=== PATIENT | female | born 1965 | race Caucasian/White ===

== ENCOUNTER 2019-01-06 07:05 | Day surgery (SDC) | payer BC ==
[2019-01-05 14:59] VITALS: BMI 24.1
[2019-01-06 08:45] VITALS: TEMP 97.7
[2019-01-06 10:08] VITALS: BP 122/83; PULSE 70
--- NOTE | 2019-01-07 17:38 | PATH ---
Surgical Pathology Report Patient Name: JACE JAVIER [facility]. Rec. #: [id number] /Age/Gender: 1965 (Age: 53) / F Account: [id number] Location: U-ENDOSCOPY Taken: 01/06/2019 Received: 01/06/2019 Reported: 01/07/2019 Physicians: Ezequiel Beckett M.D. Specimen(s) Received A: SECOND PORTION DUODENUM AND BULB B: FUNDUS POLYP C: ANTRUM D: HEPATIC FLEXURE POLYP Clinical History Screening Postoperative diagnosis: Atrophic gastritis, gastric polyps, diverticulosis, colon polyp Final Diagnosis A. SECOND PORTION DUODENUM AND BULB, BIOPSY: DUODENAL MUCOSA WITH MILD ACUTE AND CHRONIC DUODENITIS. B. GASTRIC FUNDUS, POLYP, BIOPSY: FUNDIC GLAND POLYP. IMMUNOHISTOCHEMICAL STAIN FOR H. PYLORI IS NEGATIVE. C. ANTRUM, BIOPSY: GASTRIC ANTRAL MUCOSA WITH MODERATE CHRONIC GASTRITIS. IMMUNOHISTOCHEMICAL STAIN FOR H. PYLORI IS NEGATIVE. D. HEPATIC FLEXURE, POLYP, BIOPSY: TUBULAR ADENOMA. Electronically Signed Barbra Bilsl M.D. Gross Description A. Received in formalin, labeled "biopsy second portion of duodenum and bulb" are 3 morales, irregular portions of soft tissue ranging from 0.5-0.6 cm. in greatest dimension. The specimens are submitted in toto in one cassette. B. Received in formalin, labeled "biopsy gastric fundus polyp" are 5 morales, irregular portions of soft tissue ranging from 0.1-0.5 cm. in greatest dimension. The specimens are submitted in toto in one cassette. C. Received in formalin, labeled "biopsy antrum" are 3 morales, irregular portions of soft tissue ranging from 0.3-0.5 cm. in greatest dimension. The specimens are submitted in toto in one cassette. D. Received in formalin, labeled "biopsy polyp hepatic flexure" are 2 morales, irregular portions of soft tissue measuring 0.3 and 0.7 cm. in greatest dimension. The specimens are submitted in toto in one cassette. 01/06/201901/06/2019
== END 2019-01-06 09:50 | disposition home or self-care (01) ==
LOC: JASU-ENDO 07:05
PROVIDERS: ATTEND Internal Medicine Gastroenterology
PROC: 0DB68ZX Excision of Stomach, Via Natural or Artificial Opening Endoscopic, Diagnostic (ICD-10-PCS; 2019-01-06)
PROC: 0DBL8ZX Excision of Transverse Colon, Via Natural or Artificial Opening Endoscopic, Diagnostic (ICD-10-PCS; principal; 2019-01-06 08:00)
DX: Z12.11 Encounter for screening for malignant neoplasm of colon (principal); D12.3 Benign neoplasm of transverse colon; K57.30 Diverticulosis of large intestine without perforation or abscess without bleeding; K64.8 Other hemorrhoids; K63.89 Other specified diseases of intestine; K31.7 Polyp of stomach and duodenum; K29.80 Duodenitis without bleeding; K29.50 Unspecified chronic gastritis without bleeding
CPT/HCPCS: 88305-TC; 88342-TC

== ENCOUNTER 2022-11-29 04:28 | Day surgery (SDC) | payer BC ==
[2022-11-27 10:30] VITALS: BMI 24.4
[2022-11-29 09:45] VITALS: TEMP 98.7
[2022-11-29 10:10] VITALS: BP 137/86; PULSE 80; RESP 18
== END 2022-11-29 10:27 | disposition home or self-care (01) ==
LOC: JASU-ENDO 04:28
PROVIDERS: ATTEND Internal Medicine Gastroenterology
PROC: 0DJD8ZZ Inspection of Lower Intestinal Tract, Via Natural or Artificial Opening Endoscopic (ICD-10-PCS; principal; 2022-11-29 09:00)
DX: Z12.11 Encounter for screening for malignant neoplasm of colon (principal); K57.30 Diverticulosis of large intestine without perforation or abscess without bleeding; K59.89 Other specified functional intestinal disorders; Z86.010 Personal history of colon polyps

== ENCOUNTER 2023-04-02 05:21 | Emergency (ER) | payer BC ==
[2023-04-02 05:32] VITALS: PULSE 88; RESP 16; TEMP 99; BMI 24.1
[2023-04-02] MEDS ORDERED: ACETAMINOPHEN 1000 MG/100 ML BAG IVPB ONE (05:43)
[2023-04-02] MEDS ORDERED: ACETAMINOPHEN INJECTION 100 ML IVPB ONE (05:52)
[2023-04-02] MEDS ORDERED: ONDANSETRON 4 MG/2 ML VIAL IVPUSH ONE (05:59)
[2023-04-02] MEDS ORDERED: ONDANSETRON 4 MG/2 ML VIAL ONE (05:59)
[2023-04-02 06:32] LABS: BASO % 0.7 % (0-2.0); EOS % 0.9 % (0-4.5); HEMATOCRIT 40.7 % (32.4-45.2); HEMOGLOBIN 13.8 GM/dL (10.7-15.3); MEAN PLT VOLUME 8.2 fl (7.5-11.1); MONO % 10.1 % (3.8-10.2); NEUT % 76.3 % (42.8-82.8); PLATELET COUNT 397 10^3/uL (134-434); RBC 4.47 M/mm3 (3.60-5.2); RDW 14.3 % (11.6-15.6); WHITE BLOOD COUNT 10.1 K/mm3 (4.0-10.0)
[2023-04-02] MEDS ORDERED: KETOROLAC TROMETHAMINE 30 MG/1 ML VIAL ONE (06:38)
[2023-04-02] MEDS ORDERED: KETOROLAC TROMETHAMINE 30 MG/1 ML VIAL IVPUSH ONE (06:38)
[2023-04-02 06:47] VITALS: BP 143/95
[2023-04-02] MEDS ORDERED: FAMOTIDINE 20 MG/50 ML IVPB 20 MG/50 ML MG IVPB ONE ×2 (06:51→06:58)
[2023-04-02 06:54] LABS: ALBUMIN 3.9 g/dl (3.4-5.0); CALCIUM 11.3 mg/dL (8.5-10.1)
[2023-04-02 06:55] LABS: BLOOD UREA NITROGEN 12.6 mg/dL (7-18)
[2023-04-02 06:57] LABS: CREATININE 0.9 mg/dL (0.55-1.3)
[2023-04-02 06:59] LABS: BILIRUBIN,TOTAL 0.3 mg/dL (0.2-1); TOT PROT 7.1 g/dl (6.4-8.2)
== END 2023-04-02 09:01 | disposition home or self-care (01) ==
LOC: FER 05:21
PROC: 3E033GC Introduction of Other Therapeutic Substance into Peripheral Vein, Percutaneous Approach (ICD-10-PCS; principal; 2023-04-02)
PROC: 3E033GC Introduction of Other Therapeutic Substance into Peripheral Vein, Percutaneous Approach (ICD-10-PCS; 2023-04-02)
PROC: 3E033GC Introduction of Other Therapeutic Substance into Peripheral Vein, Percutaneous Approach (ICD-10-PCS; 2023-04-02)
PROC: 3E033GC Introduction of Other Therapeutic Substance into Peripheral Vein, Percutaneous Approach (ICD-10-PCS; 2023-04-02)
DX: R10.11 Right upper quadrant pain (principal); R11.0 Nausea; N28.1 Cyst of kidney, acquired; K59.00 Constipation, unspecified
CPT/HCPCS: 36415; 74177-TC; 76705-TC; 80053; 81003; 83690; 85025; 99285-25; Q9967

== ENCOUNTER 2023-12-16 04:46 | Day surgery (SDC) | payer BC ==
[2023-11-10 15:30] VITALS: BMI 24.7
[2023-12-16] MEDS ORDERED: MIDAZOLAM HCL 2 MG/2 ML SINGLE DOSE VIAL ONE (08:46)
[2023-12-16 09:14] VITALS: TEMP 98.4
[2023-12-16 09:51] VITALS: BP 112/70; PULSE 76; RESP 12
== END 2023-12-16 09:58 | disposition home or self-care (01) ==
LOC: JASU-ENDO 04:46
PROVIDERS: ATTEND Internal Medicine Gastroenterology
PROC: 0DB78ZX Excision of Stomach, Pylorus, Via Natural or Artificial Opening Endoscopic, Diagnostic (ICD-10-PCS; 2023-12-16)
PROC: 0DB68ZX Excision of Stomach, Via Natural or Artificial Opening Endoscopic, Diagnostic (ICD-10-PCS; 2023-12-16)
PROC: 0DB98ZX Excision of Duodenum, Via Natural or Artificial Opening Endoscopic, Diagnostic (ICD-10-PCS; principal; 2023-12-16 09:00)
DX: K29.50 Unspecified chronic gastritis without bleeding (principal); K21.00 Gastro-esophageal reflux disease with esophagitis, without bleeding
CPT/HCPCS: 88305-TC; 88342-TC

== ENCOUNTER 2024-01-17 00:42 | Emergency (ER) | payer BC ==
[2024-01-17 01:02] VITALS: BP 166/105; PULSE 92; RESP 18; TEMP 98.1; BMI 25.0
[2024-01-17] MEDS ORDERED: KETOROLAC TROMETHAMINE 30 MG/1 ML VIAL ONE (01:02)
[2024-01-17] MEDS ORDERED: ONDANSETRON 4 MG/2 ML VIAL ONE (01:02)
[2024-01-17] MEDS: KETOROLAC TROMETHAMINE 30 MG/1 ML VIAL IVPUSH ONE (01:07)
[2024-01-17] MEDS: ONDANSETRON 4 MG/2 ML VIAL IVPUSH ONE (01:07)
[2024-01-17 01:29] LABS: BASO % 0.5 % (0-2.0); EOS % 0.5 % (0-4.5); HEMATOCRIT 39.7 % (32.4-45.2); HEMOGLOBIN 13.6 GM/dL (10.7-15.3); LYMPH % 13.4 % (8-40); MCH 31.8 pg (25.7-33.7); MCHC 34.2 g/dl (32.0-36.0); MEAN CELL VOLUME 92.9 fl (80-96); MEAN PLT VOLUME 7.5 fl (7.5-11.1); MONO % 6.1 % (3.8-10.2); NEUT % 79.5 % (42.8-82.8); PLATELET COUNT 444 10^3/uL (134-434); RBC 4.28 M/mm3 (3.60-5.2); RDW 14.4 % (11.6-15.6); WHITE BLOOD COUNT 12.3 K/mm3 (4.0-10.0)
[2024-01-17] MEDS ORDERED: METOCLOPRAMIDE HCL INJECTION 10 MG/2 ML VIAL ONE (01:46)
[2024-01-17] MEDS: METOCLOPRAMIDE HCL INJECTION 10 MG/2 ML VIAL IVPB ONE (01:48)
[2024-01-17 01:50] LABS: POTASSIUM 3.8 mmol/L (3.5-5.1)
[2024-01-17 01:52] LABS: CALCIUM 9.9 mg/dL (8.5-10.1)
[2024-01-17 01:53] LABS: ALBUMIN 4.2 g/dl (3.4-5.0); BLOOD UREA NITROGEN 16.9 mg/dL (7-18)
[2024-01-17 01:55] LABS: CREATININE 0.9 mg/dL (0.55-1.3)
[2024-01-17 01:57] LABS: BILIRUBIN,TOTAL 0.3 mg/dL (0.2-1); TOT PROT 7.4 g/dl (6.4-8.2)
== END 2024-01-17 03:09 | disposition home or self-care (01) ==
LOC: FER 00:42
PROC: 3E033NZ Introduction of Analgesics, Hypnotics, Sedatives into Peripheral Vein, Percutaneous Approach (ICD-10-PCS; principal; 2024-01-17)
PROC: 3E033GC Introduction of Other Therapeutic Substance into Peripheral Vein, Percutaneous Approach (ICD-10-PCS; 2024-01-17)
PROC: 3E033GC Introduction of Other Therapeutic Substance into Peripheral Vein, Percutaneous Approach (ICD-10-PCS; 2024-01-17)
DX: R10.10 Upper abdominal pain, unspecified (principal); R11.2 Nausea with vomiting, unspecified
CPT/HCPCS: 36415; 76705-TC; 80053; 83690; 84484; 85025; 99284-25